=== PATIENT | female | born 2000 ===

== ENCOUNTER 2023-08-18 22:10 | Outpatient (CLI) ==
[~2023-08-18] VITALS: Ht 175.3 cm; Wt 91.1 kg
[2023-08-18 22:25] VITALS: BP 142/91
[2023-08-18 22:49] VITALS: BP 132/83
== END 2023-08-19 00:20 | disposition home or self-care (01) ==
LOC: M LDO 22:10
PROVIDERS: ATTEND Obstetrics & Gynecology
DX: O36.8130 Decreased fetal movements, third trimester, not applicable or unspecified (principal); Z3A.36 36 weeks gestation of pregnancy
CPT/HCPCS: 59025; 76815; 76819; 76820; G0463